=== PATIENT | female | born 1995 | race African-American/Black ===

== ENCOUNTER 2016-09-03 08:25 | Emergency (ER) | payer MEDICARE, OTHER ==
[~2016-09-03] VITALS: Ht 175.3 cm; Wt 140.0 kg
[2016-09-03 11:05] VITALS: BP 118/78
== END 2016-09-03 12:04 | disposition home or self-care (01) ==
LOC: ER 10:10
DX: R07.9 Chest pain, unspecified (principal); R06.02 Shortness of breath; E11.9 Type 2 diabetes mellitus without complications; E66.9 Obesity, unspecified
CPT/HCPCS: 82962; 93005; 99283

== ENCOUNTER 2019-10-22 14:41 | Emergency (ER) | payer MEDICARE, OTHER ==
[~2019-10-22] VITALS: Ht 175.3 cm; Wt 143.0 kg
[2019-10-22 16:01] LABS: CLARITY URINE CLEAR (CLEAR); COLOR URINE YELLOW (YELLOW); KETONES URINE NEGATIVE (NEGATIVE); LEUKOCYTE ESTERASE URINE TRACE (NEGATIVE); NITRITE URINE NEGATIVE (NEGATIVE); OCCULT BLOOD URINE NEGATIVE (NEGATIVE); PROTEIN URINE NEGATIVE (NEGATIVE); SPECIFIC GRAVITY URINE 1.038 (1.005-1.030); UROBILINOGEN URINE 0.2 E.U./dL (0.2-1.0)
[2019-10-22] MEDS ORDERED: FLUCONAZOLE 100MG TABLET PO ONE (16:15)
[2019-10-22] MEDS ORDERED: FLUCONAZOLE 150MG TABLET PO NR (16:19)
[2019-10-22] MEDS ORDERED: SODIUM CHLORIDE 0.9% 1,000 ML IV ONE (17:35)
[2019-10-22 18:07] LABS: BASOPHILS % 0.6 % (0.0-2.0); EOSINOPHILS % 0.5 % (0.0-5.0); HEMATOCRIT. 43.9 % (36.0-48.0); HEMOGLOBIN. 14.5 g/dL (12.0-16.0); LYMPHOCYTES % 31.9 % (20.0-50.0); MEAN CORPUSCULAR HEMOGLOBIN 28.2 pg (28.0-32.0); MEAN CORPUSCULAR VOLUME 85.4 fL (81.0-99.0); MEAN PLATELET VOLUME 8.9 fl (7.4-10.4); MONOCYTES % 5.9 % (2.0-8.0); NEUTROPHILS % 61.1 % (40.0-76.0); PLATELET 342 x1000/uL (130-400); RED BLOOD CELL COUNT 5.15 mill/uL (4.2-5.4); RED CELL DISTRIBUTION WIDTH 12.8 % (11.6-14.6)
[2019-10-22 18:11] LABS: CHLORIDE 96 mEq/L (98-107)
[2019-10-22] MEDS ORDERED: INSULIN REGULAR (HUMULIN R) 300UNITS/3ML SUBCUT ONE (19:30)
[2019-10-22 20:35] VITALS: BP 158/96
[2019-10-25 04:11] LABS: NEISSERIA GONORRHOEAE NAA Negative (Negative)
== END 2019-10-22 20:40 | disposition home or self-care (01) ==
LOC: ER 14:41
DX: B37.3 Candidiasis of vulva and vagina (principal); N30.90 Cystitis, unspecified without hematuria; E11.65 Type 2 diabetes mellitus with hyperglycemia; Z71.89 Other specified counseling
CPT/HCPCS: 36415; 71045; 80053; 81003; 82962; 83690; 83880; 85025; 87077; 87086; 87491; 87591; 93005; 99285; J1815; J7030